=== PATIENT | female | born 1945 | race African-American/Black ===

== ENCOUNTER 2024-09-04 13:39 | Emergency (ER) | payer OTHER, SELFPAY ==
[2024-09-04 13:41] VITALS: BP 165/100
--- NOTE | 2024-09-04 16:15 | ED.GENMED ---
History of Present Illness
General
Chief Complaint: Fall
Source: patient
Exam Limitations: none
Time Seen by Provider: 09/04/24 15:06
Nursing documentation reviewed up to this point in time: agreed with
History of Present Illness
History of Present Illness:
Patient is a 78-year-old female who reports that she tried to sit down on her walker and it was unlocked, causing her to fall down. This fall occurred last night. Patient reports that she fell onto her right knee. She did not hit her head. She
denies headache, neck pain and back pain. Since then, her right knee is swollen and painful. Patient denies weakness and numbness of the legs.
Past History
Past History
ED Past Medical History: Arrthythmia (afib), HTN, Hypercholesterolemia and Other (stroke 2014 and cerebellar stroke prior to 2014)
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
Social History
Tobacco: Non-smoker
Alcohol: Occasional
Drug: None
Living: with family
Employment: Other
Family History
Family History: Other (Coronary artery disease, hypertension, cancer)
Review of Systems
Review of Systems
Allergies reviewed?: Yes
All Other Systems: ROS reviewed and negative except as documented in HPI and ROS
Constitutional: Reports no symptoms
EENT: Reports no symptoms
Respiratory: Reports no symptoms
Cardiac: Reports no symptoms
ABD/GI: Reports no symptoms
: Reports no symptoms
Musculoskeletal: Reports joint pain and joint swelling
Skin: Reports no symptoms
Neurological: Reports no symptoms
Endocrine: Reports no symptoms
Hematologic/Lymphatic: Reports no symptoms
Psychiatric: Reports no symptoms
Phy Exam
Physical Exam
Physical Exam:
Physical Exam
General: no apparent distress, not acutely ill. Atraumatic appearing face and head
Neck: supple. Nontender
Heart: No chest wall tenderness. No vertebral spine tenderness
Lungs: no acute respiratory distress. clear bilaterally
Abdomen: Soft, nontender
Neuro: alert and oriented. no focal neurological deficits. 5 out of 5 strength in all extremities
Skin: no rash
Psychiatric: well kept. interactive and cooperative
Extremities: Mild effusion and soft tissue tenderness of right patellar area. Pelvis and hips are nontender. Left lower extremity is nontender. Bilateral upper extremities are nontender
Course
Orders/Labs/Results
Orders:
Orders
09/04/24 13:45
CR Knee- Right 4 Or More View* Urgent
Comment:
Reason For Exam: fall, pain
09/04/24 16:10
Oxycodone [Roxicodone] 5 mg PO NOW STA
09/04/24 16:[address] Non Medication Order As Directed
Physician Order: linn wrap R knee
Above order entered?: Yes
Vital Signs
Initial and Last Documented VS:
Initial Vital Signs
Temp Pulse Resp BP Pulse Ox
98.4 F 85 16 165/100 96
09/04/24 13:41 09/04/24 13:41 09/04/24 13:41 09/04/24 13:41 09/04/24 13:41
Last Documented Vital Signs
Temp Pulse Resp BP Pulse Ox
98.4 F 85 16 165/100 96
09/04/24 13:41 09/04/24 13:41 09/04/24 13:41 09/04/24 13:41 09/04/24 13:41
MDM/Problems Addressed
Differential Diagnosis Includes:
Acute right knee contusion, patellar fracture, tibia fracture
MDM/Problems Addressed:
Patient presents with acute right knee swelling and pain after a fall
Chronic conditions affecting care:
Given patient has A-fib and is on a blood thinner, she is at increased risk of significant knee effusion
Chronic conditions affecting care: Arrhythmia
Acute Exacerbation and/or Progression of Chronic Illness:
Patient is acutely hypertensive, likely due to pain. There is no sign of CHF or stroke.
Acute Exacerbation and/or Progression of Chronic Illness: HTN
*Radiology
Radiology exam reviewed: preliminary read by ED provider (Right knee x-ray reviewed by me. No acute fracture) and radiology read reviewed
*Pulse Oximetry
Patient hypoxic: no
*EKG
Interpreted by ED Provider?: NA
*Lead Installer Interpretation
Rate: Lead Installer- N/A
*Critical Care Note
Total Time (30-74mins, 75-104mins- exclusive of procedures): Not Applicable
Data Reviewed
Review of Other/Old Records Reveals: Discharge Summary (Discharge summary reviewed from hospitalist from 2019 when patient was admitted for nonspecific dizziness)
Source: patient and family
Prescriptions/Medications Considered But Not Given:
Patient reports she took Tylenol last night after the fall and it did not sufficiently help with the right knee pain. Therefore, patient will be given a few doses of oxycodone for acute pain.
Patient Management
Social determinants of health affecting care: Living situation and Strong social support
Update Note
Update Note:
Patient clearly states that she fell because she tried to sit on the walker and the walker shifted. There was no history of dizziness, lightheadedness, chest pain or shortness of breath to warrant blood work or EKG.
ED Attending Note
-
Portions of this chart may have been created with voice recognition software.� Occasional wrong word or��sound alike� substitutions may have occurred due to the inherent limitations of voice recognition software.
Discharge Plan
Departure
Patient Disposition: Home (Routine Discharge)
Date of Disposition: 09/04/24
Time of Disposition: 16:11
Patient with high blood pressure during this ER visit?: Yes
Condition: Good
Covid-19: Not Applicable
Discharge Problem:
Contusion of knee, right
Instructions: Contusion (DC), BLOOD PRESSURE
Prescriptions:
New
oxycodone 5 mg tablet, oral only
5 mg PO Q6H PRN (Reason: Pain) Qty: 7 0RF
No Action
warfarin [Jantoven] 2 MG tablet
2 mg PO HS
calcium carbonate 600 MG tablet
600 mg PO BID
pantoprazole 40 MG tablet,delayed release (DR/EC)
40 mg PO DAILY
denosumab [Prolia] 60 MG/ML syringe
60 mg SQ .Q6MOS
simvastatin 10 MG tablet
10 mg PO HS
losartan-hydrochlorothiazide 1 EACH tablet
1 ea PO DAILY
diltiazem HCl 300 MG capsule,extended release 24hr
300 mg PO HS
multivitamin with folic acid [Tab-A-Fred] 1 TABLET tablet
1 tab PO DAILY
pramipexole 0.25 MG tablet
0.25 mg PO HS Qty: 30 0RF
Referrals:
Cherelle Loza MD [Family Provider] -
Activity Restrictions/Additional Instructions:
Apply an ice pack to your right knee for about 10 to 15 minutes at a time several times a day to help with swelling and pain. Take 650 mg of Tylenol every 4 hours for pain. If the pain is severe, you could also take 1 oxycodone every 6 hours.
Interventions
Interventions:
*Risk Screen - Suicide Last Done: 09/04/24 13:41
*General Assessment Last Done: 09/04/24 13:41
*Neglect/Abuse Screening Last Done: 09/04/24 13:41
*ED COVID-19 Vaccine History Last Done: 09/04/24 13:41
*Nursing Disposition Last Done: 09/04/24 16:46
ED-Musculoskeletal Assessment Last Done: 09/04/24 16:49
ED- Neurological Assessment Last Done: 09/04/24 15:21
ED-Skin Assessment Last Done: 09/04/24 16:49
Discharge Date and Time
Discharge Date/Time: 09/04/24 16:47
Print Language: TURKMEN
[2024-09-04] MEDS: ROXICODONE 5 MG PO (16:31)
== END 2024-09-04 16:47 | disposition home or self-care (01) ==
LOC: EMR 13:39
PROVIDERS: EMERGENCY PHYSICIAN Emergency Medicine; FAMILY PHYSICIAN Internal Medicine
DX: S80.01XA Contusion of right knee, initial encounter (principal); W19.XXXA Unspecified fall, initial encounter; I10 Essential (primary) hypertension; E78.00 Pure hypercholesterolemia, unspecified; I48.91 Unspecified atrial fibrillation; Z86.73 Personal history of transient ischemic attack (TIA), and cerebral infarction without residual deficits
CPT/HCPCS: 99283; 73564

== ENCOUNTER 2025-03-07 22:25 | Observation (INO) | payer OTHER, SELFPAY ==
[2025-03-07 19:06] VITALS: BP 145/76
[2025-03-07 19:17] VITALS: BMI 40.5
[2025-03-07 19:23] VITALS: BP 177/77
[2025-03-07] MEDS: DUONEB 3 ML INH (19:28)
--- NOTE | 2025-03-07 19:35 | ED.GENMED ---
History of Present Illness
General
Chief Complaint: Breathing Problem
Time Seen by Provider: 03/07/25 19:23
History of Present Illness
History of Present Illness:
Patient is a 79-year-old woman with history of A-fib on Eliquis, asthma, hypertension, hyperlipidemia presenting to the emergency department of breath. Patient states the past few days she has had cough wheezing and difficulty breathing. No chest
pain. No fevers. She has been using her steroid inhaler twice a day and her albuterol every few hours with no significant relief. No sick attacks. No recent travel or hemoptysis. She is compliant with her Eliquis.
Past History
Past History
ED Past Medical History: Arrthythmia (afib), HTN, Hypercholesterolemia and Other (stroke 2014 and cerebellar stroke prior to 2014)
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
Social History
Tobacco: Non-smoker
Alcohol: Occasional
Drug: None
Living: with family
Employment: Other
Family History
Family History: Other (Coronary artery disease, hypertension, cancer)
Phy Exam
Physical Exam
Physical Exam:
GENERAL: in no acute distress
HEENT: normocephalic, extraocular movements intact, moist oral mucosa
NECK: normal inspection
RESPIRATORY: Tachypneic, mild respiratory distress, tight breath sounds in all lung nguyen, difficulty with speaking full sentences
CARDIOVASCULAR: Tachycardic rate
ABDOMEN/: soft, non-distended, non-tender to palpation, no rebound or guarding
EXTREMITIES: non-tender, no edema/swelling
NEUROLOGIC: awake and alert, moves all extremities
SKIN: warm
Scores
Heart Failure Risk
Heart Failure Risk Score: Not Applicable
Course
Orders/Labs/Results
Orders:
Orders
03/07/25 19:11
Electrocardiogram (*1) Urgent
Reason for Study: Other
Other Reason for Exam: Respiratory Distress
Cardiac Monitoring- Treatment ONCE
EKG- Treatment ONCE
IV Insert/Care/Rem.- Treatment PRN
CR Chest - 2 Views Urgent
Comment:
Reason For Exam: respiratory distress
O2 Therapy [RESP] Urgent
Titrate/Wean O2 to maintain O2 sat greater than (%): 93
Special Instructions: TO MAINTAIN CONTINUOUS O2 SATS >/= 93%
Pulse Ox/cont/shift [RESP] Urgent
Quantity: 1
Special Instructions: continuous pulse ox
03/07/25 19:23
Ipratropium/Albuterol Sulfate [Duoneb] 3 ml .ROUTE .STK-MED ONE
03/07/25 19:28
Ipratropium/Albuterol Sulfate [Duoneb] 3 ml INH R NOW ONE
03/07/25 19:29
Albuterol Sulfate [Ventolin Nebules] 15 mg INH R NOW STA
Dexamethasone Sod Phosphate [Decadron] 10 mg IV NOW STA
Ipratropium Nebs [Atrovent Nebules] 1 mg INH R NOW STA
03/07/25 19:55
COVID-19 Antigen Urgent
Source: Nasal Swab
Influenza A+B Rapid Molecular Urgent
MARIAH Source: Nasal Swab
Specimen Description:
03/07/25 19:56
Complete Blood Count/With Diff Urgent
Comprehensive Metabolic Panel Urgent
NT-proBNP Urgent
Comment: ADD ON
Troponin I Urgent
03/07/25 20:57
Add On- LAB Urgent
Tests Added?: proBNP
03/07/25 21:00
Add On- LAB Urgent
Tests Added?: bnp
Abnormal Lab Results
03/07/25
19:56
MCHC 32.3 L g/dL
(33.0-37.0)
MPV 11.4 H fL
(7.4-10.4)
Absolute Monos (auto) 1.4 H 10^3/uL
(0.1-0.6)
Monocytes % 15.9 H %
(1.7-9.3)
Glucose 121 H mg/dl
(70-99)
03/07/25 19:56
03/07/25 19:56
Vital Signs
Initial and Last Documented VS:
Initial Vital Signs
Temp Pulse Resp BP Pulse Ox
99.2 F 110 30 145/76 90
03/07/25 19:06 03/07/25 19:06 03/07/25 19:06 03/07/25 19:06 03/07/25 19:06
Last Documented Vital Signs
Temp Pulse Resp BP Pulse Ox
99.2 F 114 20 118/70 94
03/07/25 19:06 03/07/25 21:15 03/07/25 21:15 03/07/25 21:00 03/07/25 21:15
MDM/Problems Addressed
Differential Diagnosis Includes:
Patient is a 79-year-old woman with history of asthma, A-fib on Eliquis presenting to the emergency department with shortness of breath for the past few days. On arrival patient's oxygen saturation was 90%. She did have a temperature of 99.2. She
was tachypneic and tachycardic. Lungs have tight breath sounds in all lung nguyen. Concern for asthma exacerbation versus pneumonia versus viral URI. Will give patient a continuous nebulizer treatment and steroids. Will check blood work EKG
chest x-ray. Will obtain respiratory swabs. Anticipate admission.
*Critical Care Note
Total Time (30-74mins, 75-104mins- exclusive of procedures): Not Applicable
Update Note
Update Note:
On reevaluation patient with much better aeration. She does appear much more comfortable. She does state that maybe she has not been using her albuterol inhaler properly.
Chest x-ray per my interpretation with no obvious opacity but there does appear to be some vascular congestion. She is hypertensive which has been improving. Will add on BNP for possible component new onset heart failure.
On reevaluation patient appears much more comfortable. She is not tachypneic. Her blood pressure has improved. We did discuss that if she feels short of breath again and the nebulizer is not helping we can consider BiPAP to help with the fluid.
Will hold off at this time. Discussed with hospitalist who excepted patient to their service. BNP pending.
ED Attending Note
-
Portions of this chart may have been created with voice recognition software.� Occasional wrong word or��sound alike� substitutions may have occurred due to the inherent limitations of voice recognition software.
Discharge Plan
Departure
Prescriptions:
No Action
simvastatin 10 MG tablet
10 mg PO HS
Theragen Tablet
1 tab PO DAILY
omeprazole 40 mg Capsule,Delayed Release(Dr/Ec)
40 mg PO DAILY
albuterol sulfate 90 mcg/actuation Hfa Aerosol Inhaler
2 puff INHALATION R Q6HPRN PRN (Reason: sob)
olmesartan 40 mg Tablet
40 mg PO DAILY
budesonide-formoterol [Symbicort] 160-4.5 mcg/actuation Hfa Aerosol Inhaler
2 puff INHALATION R BID
diltiazem HCl 240 mg Capsule,Extended Release 24hr
240 mg PO DAILY
Eliquis 5 mg Tablet
5 mg PO BID
Interventions
Interventions:
*Risk Screen - Suicide Last Done: 03/07/25 19:06
*General Assessment Last Done: 03/07/25 19:17
*Neglect/Abuse Screening Last Done: 03/07/25 19:06
*ED- Fall Risk Assessment Last Done: 03/07/25 19:17
*ED COVID-19 Vaccine History Last Done: 03/07/25 19:17
ED- Cardiac Assessment Last Done: 03/07/25 19:20
ED- Pulmonary Assessment Last Done: 03/07/25 19:20
Discharge Date and Time
Print Language: BELARUSIAN
[2025-03-07 20:03] LABS: % Basophils 1.2 % (0-2); % Eosinophils 5.2 % (0-6); % Immature Granulocytes 0.2 % (0-0.5); % Lymphocytes 26.2 % (20.5-51.1); % Monocytes 15.9 % (1.7-9.3); % Neutrophils 51.3 % (42.2-75.2); Absolute Basophils 0.1 10^3/uL (0-0.2); Absolute Eosinophils 0.5 10^3/uL (0-0.7); Absolute Lymphocytes 2.4 10^3/uL (1.2-3.4); Absolute Monocytes 1.4 10^3/uL (0.1-0.6); Absolute Neutrophils 4.6 10^3/uL (1.4-6.5); Hematocrit 42.4 % (37.0-47.0); Hemoglobin 13.7 g/dL (12.0-16.0); Mean Corp Hgb Conc. 32.3 g/dL (33.0-37.0); Mean Corpuscular Hgb 27.6 pg (27.0-31.0); Mean Corpuscular Volume 85.3 fL (81.0-99.0); Mean Platelet Volume 11.4 fL (7.4-10.4); Nucleated Red Blood Cells % 0 %; Platelet Count 213 10^3/uL (130-400); Red Blood Cell Count 4.97 10^6/uL (4.20-5.40); Red Cell Dist. Width 14.1 % (11.5-14.5)
[2025-03-07 20:23] LABS: COVID-19 Antigen Negative (Negative)
[2025-03-07] MEDS: VENTOLIN NEBULES 15 MG INH (20:23)
[2025-03-07] MEDS: ATROVENT NEBULES 1 MG INH (20:23)
[2025-03-07] MEDS: DECADRON 10 MG IV (20:23)
[2025-03-07 20:29] LABS: ALT (SGPT) 24 U/L (0-35); AST (SGOT) 29 U/L (14-36); Albumin 4.1 g/dl (3.5-5.0); Alkaline Phosphatase 76 U/L (38-126); Blood Urea Nitrogen 10 mg/dl (7-17); Calcium 9.8 mg/dl (8.4-10.2); Carbon Dioxide 26 mmol/L (22-30); Chloride 105 mmol/L (98-107); Estimated Creatinine Clearance 56 ml/min; Glucose 121 mg/dl (70-99); Potassium 3.9 mmol/L (3.5-5.1); Sodium 142 mmol/L (135-145); Total Bilirubin 0.5 mg/dl (0.2-1.3); Total Protein 7.2 g/dl (6.3-8.2); eGFR > 60.00
[2025-03-07 20:33] LABS: Troponin I < 0.012 ng/ml
[2025-03-07 20:55] VITALS: BP 178/80
[2025-03-07 21:00] VITALS: BP 118/70
[2025-03-07 22:02] LABS: NT-proBNP 487 pg/ml
--- NOTE | 2025-03-07 22:09 | HPS.HSE ---
Family Physician
-
Family Physician: Cherelle Loza
Chief Complaint
-
Shortness of breath
History of Present Illness
This is a 79-year-old female with past medical history significant for atrial fibrillation on anticoagulation with Xarelto, asthma, hypertension, hyperlipidemia and obesity who presents to the emergency department with worsening shortness of breath
over the last 2 weeks. According to family members the patient has been having symptoms for about 2 weeks. Did notice nonproductive cough and wheezing. More recently she has been having incessant cough paroxysms that remains nonproductive. She
has audible wheezes. She has dyspnea on exertion and even shortness of breath at rest. She has not had any fevers or chills. She reports that she does use inhalers at home. She uses Symbicort as well as rescue inhalers. Her rescue albuterol has
not been effective. She has a history of lymphedema in the left lower extremity secondary to removal of a cyst and she has had a venous stasis ulcers in that leg in the past. They report that the swelling is unchanged compared to prior. She
denies orthopnea or PND. No measured weight changes.
In the emergency department she was afebrile, she is satting 98% on room air, desats to 90% with ambulation. Blood pressure ranges from 118-170 systolic. Pulse rate is 114 sinus. ECG shows a sinus tachycardia at a rate of [address]
or T wave changes. Troponin was negative. Chest x-ray shows increased pulmonary vascularity is but otherwise unremarkable. COVID test is negative. Flu test negative.
CBC was unremarkable. Electrolytes BUN/creatinine were normal. Glucose was normal.
Medical History
Past Medical History
Past Medical History: Reports Arrhythmia (Atrial fibrillation), Asthma, GERD, HTN and Hypercholesterolemia
Past Surgical History: Reports Other
Social History
Tobacco: Non-smoker
Alcohol: None
Drug: None
Living: With Family
Family History
Family History: Not pertinent
Allergies / Home Medications
Allergies reflects when Allergies were last updated in [facility].
Home Medications with original date entered in [facility]
Allergy/Medication List:
Allergies
Allergy/AdvReac Type Severity Reaction Status Date / Time
No Known Allergies Allergy Verified 09/04/24 13:45
Home Medications
simvastatin 10 mg tablet 10 mg PO HS 12/31/18
albuterol sulfate 90 mcg/actuation aerosol inhaler 2 puff inhalation R Q6HPRN PRN sob 03/07/25
apixaban 5 mg tablet (Eliquis) 5 mg PO BID 03/07/25
budesonide-formoterol HFA 160 mcg-4.5 mcg/actuation aerosol inhaler (Symbicort) 2 puff inhalation R BID 03/07/25
diltiazem HCl 240 mg capsule,extended release 24 hr 240 mg PO DAILY 03/07/25
olmesartan 40 mg tablet 40 mg PO DAILY 03/07/25
omeprazole 40 mg capsule,delayed release 40 mg PO DAILY 03/07/25
therapeutic multivitamin 1 tab PO DAILY 03/07/25
Review of Systems
-
History Source: Patient and Family
Constitutional: Reports No Symptoms
EENT: Reports No Symptoms
Respiratory: Reports Cough and Trouble Breathing
Cardiac: Reports No Symptoms
Abdomen/GI: Reports No Symptoms
: Reports No Symptoms
Musculoskeletal: Reports No Symptoms
Skin: Reports No Symptoms
Neurological: Reports No Symptoms
Endocrine: Reports No Symptoms
Hematologic/Lymphatic: Reports No Symptoms
Psych: Reports No Symptoms
Physical Exam
Vital Signs
Vital Signs
Temp Pulse Resp BP Pulse Ox
99.2 F 124 15 118/70 96
03/07/25 19:06 03/07/25 22:00 03/07/25 22:00 03/07/25 21:00 03/07/25 21:45
Physical Exam
General: Well Developed, Well Nourished, Comfortable and Respiratory Distress
HEENT: NormoCephalic, Anicteric, Moist mucous membranes and Atraumatic
Respiratory: Wheezes
Cardiac: S1/S2 and Tachycardia
Breast: Deferred by me
GI: Soft, Non Tender, Non Distended and Normal Bowel Sounds
Rectal: Deferred by Provider
Genito-urinary: Deferred by me
Musculoskeletal: No Clubbing, No Cyanosis, Edema, Left Lower Extremity (2+ nonpitting edema) and Edema, Right Lower Extremity (Trace)
Skin: Warm
Neuro: AO x 3 and Nonfocal/grossly intact
Hematologic/Lymphatic: No Lymphadenopathy
Psych: Calm
Laboratory Results
-
03/07/25 19:56
03/07/25 19:56
Laboratory Results
Total Bilirubin 0.5 mg/dl (0.2-1.3) 03/07/25 19:56
AST 29 U/L (14-36) 03/07/25 19:56
ALT 24 U/L (0-35) 03/07/25 19:56
Alkaline Phosphatase 76 U/L (38-126) 03/07/25 19:56
Troponin I < 0.012 ng/ml 03/07/25 19:56
Data Reviewed
-
Diagnostic Radiology: Image Personally Visualized and interpreted and Report Reviewed by me
Medical Tests (Nuc Med, Echo, EKG etc): Image Personally Visualized and interpreted
Lab Data: Labs Reviewed by me
Old Records: Reviewed
Impression/Plan
-
IMPRESSION:
This is a 79-year-old female with past medical history significant for hypertension, asthma, hyperlipidemia and GERD who presents to the emergency department with worsening wheezing shortness of breath and cough over the last 2 weeks. Evaluation in
the ED is negative for an acute pneumonia. There is increased pulmonary vascularity reports no clear infiltrates on x-ray. ECG is not ischemic. Troponin negative. Labs are normal. Negative COVID and negative flu. No signs of an acute infection
here. Suspect asthma exacerbation. Possible mild CHF exacerbation cannot be ruled out at this time. She is not requiring oxygen but has severe dyspnea on exertion with symptomatic wheezing.
PLAN:
ASthma exacerbation - Non-infectious. Possible cardiac wheeze but picture more c/w asthma. O2 sats normal now on room air. Scattered wheezing on exam but moving good amount of air.
- admit to med/surg observation
- solumedrol 40 q 12 for now
- albuterol q3 hrs prn wheezing
- held off on Mag sulfate now as patient significantly improved but still wheezing. Can reconsider if not improving futher
- continue her home inhalers
AFIB
- continue apixaban and diltiazem
HTN
- continue olmesartan and statin
DVT PPX - on apixaban
Code status - full code
[2025-03-07 23:00] VITALS: BP 147/59
[2025-03-08] VITALS: BP 151/57
[2025-03-08 00:54] VITALS: BP 150/84; BMI 37.8
[2025-03-08 00:58] VITALS: BMI 37.8
[2025-03-08] MEDS: VENTOLIN NEBULES 2.5 MG INH ×3 (01:23→19:51)
[2025-03-08] MEDS: SINGULAIR 10 MG PO ×2 (01:39→17:18)
--- NOTE | 2025-03-08 01:44 | PTCARENOTE ---
admitted to 416-2 ax3 lungs with i/e wheezes and coarse- room air . r.t gave resp tx- oriented to room- see assessment
[2025-03-08 07:30] VITALS: BP 163/62
[2025-03-08] MEDS: CARDIZEM CD 240 MG PO (07:43)
[2025-03-08] MEDS: BENICAR 40 MG PO (07:43)
[2025-03-08] MEDS: SOLU-MEDROL PF 40 MG IV (07:44)
[2025-03-08] MEDS: MUCINEX 600 MG PO ×2 (07:44→20:15)
[2025-03-08] MEDS: PROTONIX 40 MG PO (07:44)
[2025-03-08] MEDS: ELIQUIS 5 MG PO ×2 (07:44→20:15)
[2025-03-08] MEDS: SYMBICORT 160/4.5 MCG INHALER 2 PUFF INH ×2 (07:51→19:48)
--- NOTE | 2025-03-08 09:02 | W.PN.HOSP.TC ---
Today's Communication/Plan
-
Continue current care
Assessment / Plan
Assessment / Plan
Gen-AAOx3, NAD, obese
HEENT-NC, AT, anicteric, clear oral mm
Neck-supple
CV-reg, no M, +S1/S2
Lungs-decreased breath sounds, mild end expiratory wheezing bilaterally
Abd-soft, NT, ND
Ext-no edema
Musculoskeletal-no cyanosis, clubbing
Skin-warm and dry
Neuro-grossly non-focal
Psych-calm, cooperative
Acute hypoxic respiratory insufficiency -suspect due to acute asthma exacerbation. Stable on room air. Chest x-ray demonstrates top normal pulmonary vascularity, mild acute pulmonary edematous changes. Clinically does not examine in heart failure.
Acute asthma exacerbation with acute bronchitis - continue steroids, nebs, Mucinex. No signs or symptoms of pneumonia.
Recommend using a spacer with the albuterol MDI. Discussed with patient.
Does not have a nebulizer at home. Does not have a sales promotion officer, will refer to pulmonary after discharge.
Does have a remote history of smoking, quit many years ago. She lives alone.
Atrial fibrillation -continue Eliquis. Unknown type of atrial fibrillation.
GERD -omeprazole.
Essential hypertension -stable.
Hyperlipidemia -simvastatin.
Obesity due to excess calories
Full code
Anticipated Discharge: Within 24 hours
Subjective/Interval History
-
Date of Service: March 08, 2025
Patient seen and examined. Feeling better overall. No new complaints.
Objective Data
-
Labs:
Laboratory Results
03/08/25
07:25
Sodium Pending
Potassium Pending
Chloride Pending
Carbon Dioxide Pending
BUN Pending
Creatinine Pending
Glucose Pending
Calcium Pending
Vital Signs:
Vital Signs
Temp Pulse Resp BP Pulse Ox
97.6 F 94 16 163/62 92
03/08/25 07:30 03/08/25 07:54 03/08/25 07:54 03/08/25 07:30 03/08/25 07:30
Review of Systems
-
History Source: Patient
All other systems: Reviewed and negative
[2025-03-08 09:03] LABS: Blood Urea Nitrogen 14 mg/dl (7-17); Calcium 9.4 mg/dl (8.4-10.2); Carbon Dioxide 21 mmol/L (22-30); Chloride 106 mmol/L (98-107); Estimated Creatinine Clearance 84 ml/min; Glucose 176 mg/dl (70-99); Magnesium 1.9 mg/dl (1.6-2.3); Potassium 4.2 mmol/L (3.5-5.1); Sodium 140 mmol/L (135-145); eGFR > 60.00
--- NOTE | 2025-03-08 11:21 | CM ---
Patient seen bedside, very pleasant. Initial assessment completed. Patient is a 79-year-old female with past medical history significant for atrial fibrillation on anticoagulation with Xarelto, asthma, hypertension, hyperlipidemia and obesity who
presents to the emergency department with worsening shortness of breath over the last 2 weeks.
Patient reports that she resides alone in a single story home- 1 step. Patient ambulates w/ RW, has grab bars and shower chair in the home. Denies SNF hx, HC services in the past following stroke in 2019, OP therapy in the past. Patient shared that
she participates in water aerobics.
Address, points of contact and insurance verified
PCP: Cherelle Loza
Pharmacy: [facility]
Patient is admitted as OBS. ISSA form verbally reviewed, patient given copy, copy placed on chart
Plan: Anticipate home; no needs
[2025-03-08 15:00] VITALS: BP 140/79
[2025-03-08 18:13] LABS: Hepatitis C Antibody Negative (Negative)
[2025-03-08] MEDS: LIPITOR 10 MG PO (20:15)
[2025-03-08 23:18] VITALS: BP 142/70
[2025-03-09] MEDS: VENTOLIN NEBULES 2.5 MG INH (06:56)
[2025-03-09] MEDS: SYMBICORT 160/4.5 MCG INHALER 2 PUFF INH (06:56)
[2025-03-09 07:30] VITALS: BP 144/72
[2025-03-09] MEDS: PROTONIX 40 MG PO (07:47)
[2025-03-09] MEDS: MUCINEX 600 MG PO (07:47)
[2025-03-09] MEDS: CARDIZEM CD 240 MG PO (07:48)
[2025-03-09] MEDS: BENICAR 40 MG PO (07:48)
[2025-03-09] MEDS: ELIQUIS 5 MG PO (07:48)
[2025-03-09] MEDS: SOLU-MEDROL PF 40 MG IV (07:49)
--- NOTE | 2025-03-09 10:03 | W.PN.HOSP.TC ---
Today's Communication/Plan
-
Possible discharge later today
Assessment / Plan
Assessment / Plan
Gen-AAOx3, NAD, obese
HEENT-NC, AT, anicteric, clear oral mm
Neck-supple
CV-reg, no M, +S1/S2
Lungs-decreased breath sounds, mild end expiratory wheezing bilaterally
Abd-soft, NT, ND
Ext-no edema
Musculoskeletal-no cyanosis, clubbing
Skin-warm and dry
Neuro-grossly non-focal
Psych-calm, cooperative
Acute hypoxic respiratory insufficiency -suspect due to acute asthma exacerbation. Stable on room air. Chest x-ray demonstrates top normal pulmonary vascularity, mild acute pulmonary edematous changes. Clinically does not examine in heart failure.
Acute asthma exacerbation with acute bronchitis - continue steroids, nebs, Mucinex. No signs or symptoms of pneumonia.
Recommend using a spacer with the albuterol MDI. Discussed with patient.
Does not have a nebulizer at home. Does not have a pelt shearer, will refer to pulmonary after discharge.
Does have a remote history of smoking, quit many years ago. She lives alone.
Explained to patient that the cough can linger for several weeks.
Atrial fibrillation -continue Eliquis. Unknown type of atrial fibrillation.
GERD -omeprazole.
Essential hypertension -stable.
Hyperlipidemia -simvastatin.
Obesity due to excess calories
Full code
Dispo -potential discharge later today if clinically improved. Prescription for nebulizer machine provided. Outpatient follow-up with PCP, pulmonary. Updated daughter on the phone.
Anticipated Discharge: Today
Subjective/Interval History
-
Date of Service: March 09, 2025
Patient seen and examined. Complaining of cough, wheezing, shortness of breath on exertion.
Objective Data
-
Vital Signs:
Vital Signs
Temp Pulse Resp BP Pulse Ox
98.7 F 94 24 144/72 97
03/09/25 07:30 03/09/25 07:30 03/09/25 07:30 03/09/25 07:30 03/09/25 07:30
I&O
03/08/25 03/09/25 03/10/25
06:59 06:59 06:59
Intake Total 840 / 840
Output Total 450 / 450
Balance 390 / 390
Review of Systems
-
History Source: Patient
All other systems: Reviewed and negative
[2025-03-09 11:30] VITALS: BP 140/66
--- NOTE | 2025-03-09 11:58 | W.DS.TRANS ---
DC Summary - Manager Customer
-
Discharge Instructions:
Discharge Diagnosis/Procedures Acute asthma exacerbation
Diet Low Cholesterol,Low Fat
Activity As tolerated
Driving Restrictions As prior to admission
Bathing Restrictions None
Instructions:
Stand-Alone Forms:
Changes to Home Medications: No
Discharge Medications:
DC Medications w/original date entered in [facility]
simvastatin 10 mg tablet 10 mg PO HS 12/31/18
albuterol sulfate 90 mcg/actuation aerosol inhaler 2 puff inhalation R Q6HPRN PRN sob 03/07/25
apixaban 5 mg tablet (Eliquis) 5 mg PO BID 03/07/25
budesonide-formoterol HFA 160 mcg-4.5 mcg/actuation aerosol inhaler (Symbicort) 2 puff inhalation R BID 03/07/25
diltiazem HCl 240 mg capsule,extended release 24 hr 240 mg PO DAILY 03/07/25
olmesartan 40 mg tablet 40 mg PO DAILY 03/07/25
omeprazole 40 mg capsule,delayed release 40 mg PO DAILY 03/07/25
therapeutic multivitamin 1 tab PO DAILY 03/07/25
albuterol sulfate 2.5 mg/3 mL (0.083 %) solution for nebulization 2.5 mg (3 mL) inhalation Q4H PRN shortness of breath or wheezing #90 mL 03/09/25
guaifenesin 600 mg tablet, extended release 12 hr 600 mg PO Q12 #20 tabs 03/09/25
montelukast 10 mg tablet 10 mg PO QPM #30 tabs 03/09/25
prednisone 10 mg tablet 10 mg PO DIRECTED #30 tabs 03/09/25
Home Medication Changes
Pending Results: No
--- NOTE | 2025-03-09 12:49 | CM ---
Per hospitalist, patient will d/c today. Rx for neb machine on chart
Met w/ patient bedside, agreeable to d/c. Daughter will transport home
IMM verbally reviewed, patient given copy, copy placed on chart
Plan: Home; no needs
== END 2025-03-09 14:22 | disposition home or self-care (01) ==
LOC: 4 WEST ACU 22:25
PROVIDERS: Emergency Medicine; ADMITTING PHYSICIAN Internal Medicine; ATTENDING PHYSICIAN Hospitalist; EMERGENCY PHYSICIAN Student in an Organized Health Care Education/Training Program; FAMILY PHYSICIAN Internal Medicine
DX: J45.901 Unspecified asthma with (acute) exacerbation (principal); J20.9 Acute bronchitis, unspecified; I48.20 Chronic atrial fibrillation, unspecified; R06.89 Other abnormalities of breathing; R09.02 Hypoxemia; I10 Essential (primary) hypertension; E78.00 Pure hypercholesterolemia, unspecified; R06.02 Shortness of breath; R06.03 Acute respiratory distress; R06.09 Other forms of dyspnea; R60.9 Edema, unspecified; R00.0 Tachycardia, unspecified; K21.9 Gastro-esophageal reflux disease without esophagitis; E66.09 Other obesity due to excess calories; Z79.01 Long term (current) use of anticoagulants; Z86.73 Personal history of transient ischemic attack (TIA), and cerebral infarction without residual deficits; Z82.49 Family history of ischemic heart disease and other diseases of the circulatory system; Z79.51 Long term (current) use of inhaled steroids; Z79.899 Other long term (current) drug therapy; Z68.37 Body mass index [BMI] 37.0-37.9, adult; Z11.52 Encounter for screening for COVID-19; Z60.2 Problems related to living alone
CPT/HCPCS: 71046; 80048; 80053; 83735; 83880; 84484; 85025; 86803; 87502; 87811; 93005; 94640; 96374; 99285; G0378

== ENCOUNTER 2025-11-20 14:07 | Emergency (ER) | payer OTHER, SELFPAY ==
[2025-11-20 14:31] VITALS: BP 156/66
[2025-11-20 15:25] LABS: Hematocrit 34.1 % (37.0-47.0); Hemoglobin 10.3 g/dL (12.0-16.0); Mean Corp Hgb Conc. 30.2 g/dL (33.0-37.0); Mean Corpuscular Volume 78.0 fL (81.0-99.0); Nucleated Red Blood Cells % 0 %; Platelet Count 225 10^3/uL (130-400); Red Cell Dist. Width 16.4 % (11.5-14.5)
[2025-11-20 15:33] LABS: INR 0.99; PT 13.2 Sec (11.4-14.6)
[2025-11-20 15:38] LABS: ALT (SGPT) 15 U/L (0-35); AST (SGOT) 19 U/L (14-36); Albumin 4.0 g/dl (3.5-5.0); Alkaline Phosphatase 55 U/L (38-126); Blood Urea Nitrogen 12 mg/dl (7-17); Calcium 9.0 mg/dl (8.4-10.2); Carbon Dioxide 27 mmol/L (22-30); Chloride 105 mmol/L (98-107); Glucose 112 mg/dl (70-99); Potassium 4.1 mmol/L (3.5-5.1); Sodium 136 mmol/L (135-145); Total Protein 7.1 g/dl (6.3-8.2); eGFR > 60.00
[2025-11-20 15:41] LABS: APTT 29.2 Sec (23.4-35.0)
--- NOTE | 2025-11-20 18:52 | ED.GENMED ---
History of Present Illness
General
Chief Complaint: Weakness
Time Seen by Provider: 11/20/25 17:41
History of Present Illness
History of Present Illness:
80-year-old female presents to the emergency department for evaluation of shortness of breath wheezing and malaise for the past several weeks. She has been using her albuterol without relief. Denies any chest pain or leg swelling. No fevers or
chills. Has a prior history of iron deficiency anemia was advised several months ago to stop taking her iron supplementation and wonders if this could be the cause. No black or bloody stools. She is on Eliquis for A-fib.
Past History
Past History
ED Past Medical History: Arrthythmia (afib), HTN, Hypercholesterolemia and Other (stroke 2014 and cerebellar stroke prior to 2014)
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
Social History
Tobacco: Non-smoker
Alcohol: Occasional
Drug: None
Living: with family
Employment: Other
Family History
Family History: Other (Coronary artery disease, hypertension, cancer)
Review of Systems
Review of Systems
Allergies reviewed?: Yes
All Other Systems: ROS reviewed and negative except as documented in HPI and ROS
Phy Exam
Physical Exam
Physical Exam:
GEN: Well appearing, NAD, WDWN
HEENT: Oral mucosa moist, no scleral icterus
Cardiac: Regular rate and rhythm, no murmur
Lung: No respiratory distress, no tachypnea, lungs clear to auscultation bilaterally
MSK: No gross deformity or injuries, unilateral left lower extremity edema reportedly chronic due to venous insufficiency
Skin: Good color, no pallor or jaundice, no rashes
Neuro: AO x3, moves all extremities freely
Psych: Calm, cooperative
Course
Orders/Labs/Results
Orders:
Orders
11/20/25 14:58
Type+Screen Urgent
Complete Blood Count/With Diff Urgent
Comprehensive Metabolic Panel Urgent
Ferritin Urgent
Comment: ADD ON
Iron Urgent
Comment: ADD ON
NT-proBNP Urgent
Comment: ADD ON
PTT Urgent
Prothrombin Time Urgent
Total Iron Binding Urgent
Comment: ADD ON
11/20/25 18:31
Add On- LAB Urgent
Tests Added?: iron, ferritin, TIBC
11/20/25 18:51
Ipratropium/Albuterol Sulfate [Duoneb] 3 ml INH R NOW STA
CR Chest - 2 Views Urgent
Comment:
Reason For Exam: SOB
11/20/25 19:58
Electrocardiogram (*1) Urgent
Reason for Study: Shortness of Breath
EKG- Treatment ONCE
11/20/25 20:33
Add On- LAB Urgent
Tests Added?: BNP
Abnormal Lab Results
11/20/25
14:58
Hgb 10.3 L g/dL
(12.0-16.0)
Hct 34.1 L %
(37.0-47.0)
MCV 78.0 L fL
(81.0-99.0)
MCH 23.6 L pg
(27.0-31.0)
MCHC 30.2 L g/dL
(33.0-37.0)
RDW 16.4 H %
(11.5-14.5)
MPV 11.9 H fL
(7.4-10.4)
Absolute Monos (auto) 1.0 H 10^3/uL
(0.1-0.6)
Monocytes % 10.9 H %
(1.7-9.3)
Eosinophils % 6.8 H %
(0-6)
Glucose 112 H mg/dl
(70-99)
Iron 27 L ug/dl
(37-170)
% Saturation 6 L %
(20-50)
Ferritin 7.5 L ng/ml
(11.1-264.0)
11/20/25 14:58
11/20/25 14:58
Vital Signs
Initial and Last Documented VS:
Initial Vital Signs
Temp Pulse Resp BP Pulse Ox
98.4 F 73 20 156/66 97
11/20/25 14:31 11/20/25 14:31 11/20/25 14:31 11/20/25 14:31 11/20/25 14:31
Last Documented Vital Signs
Temp Pulse Resp BP Pulse Ox
98.4 F 74 20 156/66 97
11/20/25 14:31 11/20/25 21:58 11/20/25 14:31 11/20/25 14:31 11/20/25 21:58
MDM/Problems Addressed
MDM/Problems Addressed:
Her symptoms may be due to gradually worsening of iron deficiency anemia she does have mild wheezing intermittently in the ED suggesting potential etiology of asthma. Will treat her with a course of steroids and start her on iron supplementation.
Denies any evidence for CHF, chest x-ray she is able to ambulate without hypoxia
*Pulse Oximetry
SaO2: 97
Oxygen Mode of Delivery: Room air
Patient hypoxic: no
*Critical Care Note
Total Time (30-74mins, 75-104mins- exclusive of procedures): Not Applicable
ED Attending Note
-
Portions of this chart may have been created with voice recognition software.� Occasional wrong word or��sound alike� substitutions may have occurred due to the inherent limitations of voice recognition software.
Discharge Plan
Departure
Patient Disposition: Home (Routine Discharge)
Date of Disposition: 11/20/25
Time of Disposition: 21:45
Patient with high blood pressure during this ER visit?: No
Discharge Problem:
Shortness of breath, Iron deficiency anemia
Instructions: Low iron in adults (DC)
Prescriptions:
New
ferrous sulfate 325 mg (65 mg iron) tablet
325 mg PO BID Qty: 60 0RF
methylprednisolone [Medrol ([place])] 4 mg tablets,dose pack
See Rx Instructions .ROUTE .COMPLEX Qty: 21 0RF
Rx Instructions:
orally per package directions
No Action
simvastatin 10 MG tablet
10 mg PO HS
therapeutic multivitamin Tablet
1 tab PO DAILY
omeprazole 40 mg Capsule,Delayed Release(Dr/Ec)
40 mg PO DAILY
albuterol sulfate 90 mcg/actuation Hfa Aerosol Inhaler
2 puff INHALATION R Q6HPRN PRN (Reason: sob)
olmesartan 40 mg Tablet
40 mg PO DAILY
budesonide-formoterol [Symbicort] 160-4.5 mcg/actuation Hfa Aerosol Inhaler
2 puff INHALATION R BID
diltiazem HCl 240 mg Capsule,Extended Release 24hr
240 mg PO DAILY
Eliquis 5 mg Tablet
5 mg PO BID
albuterol sulfate 2.5 mg /3 mL (0.083 %) Solution For Nebulization
2.5 mg inhalation Q4H PRN (Reason: shortness of breath or wheezing) Qty: 90 0RF
montelukast 10 mg Tablet
10 mg PO QPM Qty: 30 0RF
guaifenesin 600 mg Tablet Extended Release 12hr
600 mg PO Q12 Qty: 20 0RF
prednisone 10 mg tablet
10 mg PO DIRECTED Qty: 30 0RF
Rx Instructions:
4 tabs daily x3 days, 3 tabs daily x3 days, 2 tabs daily x3 days, 1 tab daily x3 days.
Referrals:
Cherelle Loza MD [Primary Care Provider, Internal Medicine]
Interventions
Interventions:
*General Assessment Last Done: 11/20/25 14:31
*Neglect/Abuse Screening Last Done: 11/20/25 14:31
*ED COVID-19 Vaccine History Last Done: 11/20/25 18:23
*ED Influenza Vaccine History Last Done: 11/20/25 18:23
[facility] Fall Risk Assessment Tool Last Done: 11/20/25 14:08
*Risk Screen - Suicide (C-SSRS) Last Done: 11/20/25 21:58
*Nursing Disposition Last Done: 11/20/25 21:58
ED- Cardiac Assessment Last Done: 11/20/25 18:23
ED- Neurological Assessment Last Done: 11/20/25 18:23
ED- Pulmonary Assessment Last Done: 11/20/25 18:23
Discharge Date and Time
Discharge Date/Time: 11/20/25 21:58
Print Language: UKRAINIAN
[2025-11-20 19:11] LABS: Iron 27 ug/dl (37-170)
[2025-11-20] MEDS: DUONEB 3 ML INH (19:14)
[2025-11-20 19:20] LABS: Total Iron Binding Capacity 441 ug/dl (265-497)
[2025-11-20 19:53] LABS: Ferritin 7.5 ng/ml (11.1-264.0)
== END 2025-11-20 21:58 | disposition home or self-care (01) ==
LOC: EMR 14:07
PROVIDERS: EMERGENCY PHYSICIAN Emergency Medicine; PRIMARYCARE PHYSICIAN Internal Medicine
DX: R06.02 Shortness of breath (principal); D50.9 Iron deficiency anemia, unspecified; R06.2 Wheezing; R53.1 Weakness; I10 Essential (primary) hypertension; E78.00 Pure hypercholesterolemia, unspecified; I48.91 Unspecified atrial fibrillation; Z86.73 Personal history of transient ischemic attack (TIA), and cerebral infarction without residual deficits
CPT/HCPCS: 99283; 94640; 71046; 80053; 82728; 83540; 83550; 83880; 85025; 85610; 85730; 86850; 86900; 86901; 93005